=== PATIENT | female | born 2000 | race Caucasian/White ===

== ENCOUNTER → 2021-05-11 | Outpatient (CLI) | payer OTHER | LOC: M PLALAB 14:11 | PROVIDERS: ATTEND Obstetrics & Gynecology | DX: Z34.83 Encounter for supervision of other normal pregnancy, third trimester (principal) ==

== ENCOUNTER → 2021-05-24 | Outpatient (CLI) | payer OTHER ==
--- NOTE | 2021-05-24 11:08 | REP ---
INDICATION: ANATOMY. COMPARISON: None. TECHNIQUE: Multiple bulla ultrasonographic images of the gravid uterus. FINDINGS: There is a single intrauterine gestation in a cephalic presentation. heart rate is 144 beats per minute. The placenta is anterior with grade 2 maturity. There is no placenta previa. There is a three-vessel umbilical cord. Amniotic fluid index is 16.9 (7.9-24.9). The cervix measures 3.8 cm length. The composite ultrasound gestational age by today's study is 35 weeks 0 days with an IVÁN of 06/28/2021. The LMP is unknown therefore there is no LMP gestational age. Estimated weight is 2670 g/5 lb, 14 oz. This is the 68th percentile for 35 weeks 0 days. The following anatomic structures are identified and are unremarkable: Cranium, cavum septum pellucidum, falx, intracranial ventricles, choroid plexus, facial profile, orbits, upper lip, lungs, cardiac rhythm, four-chamber heart, cardiac right left ventricular outflow tracts, diaphragm, stomach, abdominal wall, right and left kidneys, bladder, spine, right and left upper extremities, right left lower extremities and 3 vessel cord. Suboptimally demonstrated because of position and age the cerebellum, cisterna magna and nuchal fold. Patient reportedly has had no care until this time. IMPRESSION: Some of the anatomy could not be adequately demonstrated as discussed above. Viable 35 week 0 day intrauterine gestation. <Electronically signed by Ugo Awad > 05/24/21 [id number]
== END ==
LOC: M WHC 09:57
PROVIDERS: ATTEND Obstetrics & Gynecology
DX: Z34.93 Encounter for supervision of normal pregnancy, unspecified, third trimester (principal)

== ENCOUNTER 2021-06-09 07:30 | Inpatient (IN) | payer OTHER ==
[~2021-06-09] VITALS: Ht 157.5 cm; Wt 67.9 kg
[2021-06-09] VITALS (12 sets, daily range): BP systolic 115–158; BP diastolic 59–95
[2021-06-09] MEDS ORDERED: PENICILLIN G POTASSIUM IV 5 MU in D5W MINI-BAG PLUS 100 ML IV STA (07:46)
[2021-06-09] MEDS ORDERED: LACTATED RINGER'S 1000 ML IV STA (07:46)
[2021-06-09] MEDS ORDERED: OXYTOCIN 30 UNITS IN 0.9% NaCl 500ML IV BAG (J2590) As Ordered ONE (07:48)
[2021-06-09] MEDS ORDERED: OXYTOCIN DRIP 30 UNITS in IV 1 EA IV PRN (07:50)
[2021-06-09] MEDS ORDERED: METHYLERGONOVINE MALEATE 0.2 MG/ML VIAL (J2210) IM PRN (07:50)
[2021-06-09] MEDS ORDERED: LIDOCAINE 1% MDV 20ML VIAL INFIL PRN (07:50)
[2021-06-09] MEDS ORDERED: LR 1,000 ML IV SCH (07:50)
--- NOTE | 2021-06-09 08:01 | HPEPDOC ---
Obstetrical History & Physical General Date of Admission Jun 09, 2021 at 07:44 History of Present Illness Chief Complaint: Contractions, term Information Provided By: Patient Age: 21 : 4 Term: 2 Pre-term: 0 Abortions: 1 Livin Care Care: Good Care Dating Final EDC: Jun 19, 2021 Final EDC by: LMP EGA at Admission: 38 (+4) Past Medical History Past Obstetrical History #1: Past Obstetrical History: Primgravida (2016) Type of Delivery: Spontaneous Vaginal Del. Sex of : Female Complications: No Past Obstetrical History #2: Past Obstetrical History: Multigravida (2018) Type of Delivery: Spontaneous Vaginal Del. 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 BREAST: . ABDOMEN: Gravid and non-tender to touch. FETUS: Is vertex (VTX) by sterile vaginal examination (SVE), fetus is vertex (VTX) by Rolan. 7# HEART RATE: Regular rate and rhythm. LUNGS: Clear to auscultation (CTA). EXTREMITIES: No edema. No clonus. Deep tendon reflexes (DTRs) + 2. Anatomy Ultrasound Ultrasound Date: May 24, 2021 Placenta Location: Anterior Normal Anatomy: Yes Placenta Previa: No Estimated Weight (grams): 2670 (68%) Steroid Therapy Steroid Therapy: No Vaginal Examination Dilation: 8 cm Effacement: 90% Station: -1 Cervical Consistency: Soft Cervical Position: Middle Presentation: Cephalic presentation Assessment Heart Rate (FHR): 125 Variability: Moderate Accelerations: Positive Decelerations: None Tocometer Contractions: Yes Frequency: regular, every 2-2 min. Duration: greater than 60 seconds Strength: palpated as strong Assessment/Plan Assessment Sveta is a 21-year-old (G)4 para (P)2-0-1-2 at 38+4 weeks by third trimester ultrasound. Presents to Labor and Delivery (L&D) with reports of contractions starting 2 hours ago. Denies bleeding, LOF. complicated by lack of care, only had one visit @ [facility] @ approximately 34wks gestation. No labs have been drawn. Anatomy scan WNL @ 35wks. Plan Admit and orient. 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 Diet: clear liquids. Group B Streptococcus (GBS) unknown. Prophylaxis ordered Labs and intravenous (IV) per unit protocol. Counseled on Pitocin and induction of labor (IOL). Lactated Ringers (LR): Bolus 500 mL, then at 125 mL/hr. Anticipate normal spontaneous delivery (). C-S as appropriate. Emily Rivera CNM Jun 09, 2021 08:01
[2021-06-09 08:06] LABS: HEMATOCRIT 33.2 % (36.0-47.0); HEMOGLOBIN 10.9 g/dl (12.0-15.5); MEAN CORPUSCULAR HGB CONC 32.8 g/dl (32.0-36.5); MEAN CORPUSCULAR VOLUME 85.3 fl (80.0-96.0); PLATELET COUNT, AUTOMATED 281 10^3/uL (150-450); RED BLOOD COUNT 3.89 10^6/uL (4.00-5.40); WHITE BLOOD COUNT 9.4 10^3/uL (4.0-10.0)
[2021-06-09] MEDS ORDERED: FENTANYL 2MCG/ML ROPIVACAINE 0.2% IN 0.9% NACL 100ML IVBAG As Ordered ONE (08:54)
[2021-06-09] MEDS ORDERED: METHYLERGONOVINE MALEATE 0.2 MG TAB PO PRN (09:45)
[2021-06-09] MEDS ORDERED: OXYTOCIN DRIP 30 UNITS in IV 1 EA IV SCH (09:45)
[2021-06-09] MEDS ORDERED: ACETAMINOPHEN TAB 650MG DOSE (2X325MG) PO PRN (09:45)
[2021-06-09] MEDS ORDERED: ANUSOL HC CREAM 30GM TOP PRN (09:45)
[2021-06-09] MEDS ORDERED: DIBUCAINE 1% OINTMENT 30GM TOP PRN (09:45)
[2021-06-09] MEDS ORDERED: RHOGAM 300 MCG (1500 IU) INJ (J2790) IM SCH (09:45)
[2021-06-09] MEDS ORDERED: MOM 30ML SUSPENSION UDC PO PRN (09:45)
[2021-06-09] MEDS ORDERED: IBUPROFEN 600MG TAB PO PRN (09:45)
[2021-06-09] MEDS ORDERED: DOCUSATE SODIUM 100MG CAPSULE PO PRN (09:45)
[2021-06-09] MEDS ORDERED: ACETAMINOPHEN 500 MG TAB PO PRN (09:45)
[2021-06-09] MEDS ORDERED: IBUPROFEN 800 MG TAB PO PRN (09:45)
[2021-06-09] MEDS ORDERED: MEASLES,MUMPS,RUBELLA VACCINE INJ (MMR-II) (90707) SC SCH (09:45)
--- NOTE | 2021-06-09 09:49 | DNPDOC ---
[facility] Delivery Note Delivery Note DATE OF DELIVERY: 06/09/2021 TIME OF : 0921 GENDER: Male. APGARS: 9 and 9. WEIGHT: 2870 g or 6 lbs. 3 oz. LACERATIONS: none ANESTHESIA: none ESTIMATED BLOOD LOSS: 200 ml COUNTS: 5 laparotomy sponges accounted for prior to after delivery. DELIVERY NOTE: On on 06/09/2021 at 0921 Anais had a spontaneous vaginal delivery of a liveborn male infant Apgars 9 and 9 weight was 6 lbs. 3 oz. or 2810 g Head was delivered occiput anterior (OA). Nuchal cord manually reduce, followed by delivery of the shoulders and corpus. Infant was handed to mom with a good cry. Cord was clamped times two and was cut by support person under my direction. Placenta was then drained and delivered grossly intact. A premixed bag of 500 mL of normal saline with 30 units of Pitocin was then bolused along with uterine massage until the uterus was firm. On inspection , cervix, vagina, perineum was grossly intact and hemostatic. Mom and baby in recovery on stable condition. The couples decided to name the son Soto MONTGOMERYABBY MD. Jun 09, 2021 09:49
[2021-06-09] MEDS ORDERED: PENICILLIN G POTASSIUM IV 2.5 MU in IV 1 EA IV SCH (12:30)
[2021-06-09] MEDS ORDERED: REFRIGERATOR IV KEYS XX PRN (13:40)
[2021-06-09] MEDS ORDERED: FENTANYL/ROPIVACAINE/NACL BAG 100 ML EPIDURAL SCH (13:40)
[2021-06-09] MEDS ORDERED: ONDANSETRON 4MG/2ML VIAL IV PRN (13:40)
[2021-06-09] MEDS ORDERED: EPIDURAL COMMENT XX SCH (13:40)
[2021-06-09] MEDS ORDERED: EPIDURAL/PCA KEYS XX PRN (13:40)
[2021-06-09] MEDS ORDERED: diphenhydrAMINE 50MG/ML VIAL (J1200) IV PRN (13:40)
[2021-06-09] MEDS ORDERED: NALOXONE INJ 0.4MG/1ML VIAL (J2310 PER 1MG) IV PRN (13:40)
[2021-06-10 05:50] VITALS: BP 117/72
[2021-06-10] MEDS: PRENATAL VITAMINS CHEWABLE TABLET PO SCH (08:38)
[2021-06-10] MEDS ORDERED: BOOSTRIX/ADACEL VACCINE (DIPHTH/PERTUSS/ACELL/TETANUS) 0.5ML SYR IM ONE (09:00)
--- NOTE | 2021-06-10 12:14 | IPNPDOC ---
Progress Note Date of Service: Jun 10, 2021 Day#: 1 Progress Note SUBJECT: Doing well without complaints. Ambulating, voiding and pain is well-c ontrolled. Reports minimal lochia. OBJECTIVE: VITAL SIGNS: Within normal limits, afebrile. Alert and oriented times three. Abdomen: Fundus firm at U-2. Soft, NTTP. Ext: neg calf tenderness. ASSESSMENT: day #1 status post . Recovering in stable condition. PLAN: 1. Continue routine care 2. Discharge plans for tomorrow VS, I&O, 24H, Fishbone Vital Signs/I&O Vital Signs Date Time Temp Pulse Resp B/P (MAP) Pulse Ox O2 Delivery O2 Flow Rate FiO2 06/10/21 05:50 97.6 65 16 117/72 (87) 99 Room Air I&O- Last 24 Hours up to 6 AM 06/10/21 05:59 Intake Total 1000 ml Output Total 400 ml Balance 600 ml ABBY MONTGOMERY MD. Jun 10, 2021 12:14
[2021-06-10 18:00] VITALS: BP 138/72
[2021-06-11 06:00] VITALS: BP 137/68
[2021-06-11] MEDS: PRENATAL VITAMINS CHEWABLE TABLET PO SCH (08:32)
[2021-06-11] MEDS ORDERED: IBUP80TA PO (09:32)
[2021-06-11] MEDS ORDERED: ACET-683 PO (09:32)
== END 2021-06-11 13:20 | disposition home or self-care (01) | DRG 0 ==
LOC: M LDO 07:30 → M LDI 07:44 → M OBS 11:45
PROVIDERS: ADMIT Advanced Practice Midwife; ATTEND Obstetrics & Gynecology
PROC: 10E0XZZ Delivery of Products of Conception, External Approach (ICD-10-PCS; principal; 2021-06-09)
DX: O69.81X0 Labor and delivery complicated by cord around neck, without compression, not applicable or unspecified (principal); O99.824 Streptococcus B carrier state complicating childbirth; Z3A.38 38 weeks gestation of pregnancy; Z37.0 Single live birth